=== PATIENT | male | born 1980 | race African-American/Black ===

== ENCOUNTER 2019-04-09 05:55 | Emergency (ER) | payer OTHER ==
[~2019-04-09] VITALS: Ht 154.9 cm; Wt 99.8 kg
[2019-04-09 05:55] VITALS: BP 194/108
--- NOTE | 2019-04-09 06:00 | NUR ---
38 Y/O M BIBA FROM HOME WITH C/O NECK PAIN X2 WEEKS, WORSENING LAST NIGHT. 9/10 PAIN, SHARP AND PINPOINT. PAIN RADIATES BILATERAL SHOULDERS. C/O DIARRHEA AND CHILLS. SINCE LAST NIGHT. AV FISTULA TO L ARM, +BRUIT/THRILL. R CHEST PORT USED FOR DIALYSIS, MWF. PT R NECK TENDER TO TOUCH. DENIES N/V. ERMD NOTIFIED OF PT CONDITION. BEDRAILSX2 UP. BED IN LOCKED POSITION. WILL CONTINUE TO MONITOR.
[2019-04-09] MEDS ORDERED: ASPIRIN 325 MG TAB PO ONE (06:05)
[2019-04-09] MEDS ORDERED: MORPHINE SULFATE 4 MG/ML SYR IVP ONE (06:05)
[2019-04-09] MEDS ORDERED: METOPROLOL 5 MG/5 ML VIAL IVP ONE (06:05)
--- NOTE | 2019-04-09 06:10 | NUR ---
EKG PERFORMED AT BEDSIDE
--- NOTE | 2019-04-09 06:30 | NUR ---
UNABLE TO OBTAIN BLOOD FROM IV LINE. LAB ATTEMPTED AND UNSUCCESSFUL. DR. AGGARWAL MADE AWARE AND GAVE PERMISSION TO SEND PT TO CT WITHOUT LAB RESULTS.
--- NOTE | 2019-04-09 06:44 | NUR ---
PT AMBULATED TO WITH EMT ASSISTANCE.
--- NOTE | 2019-04-09 06:57 | NUR ---
CT SETTING UP FOR PROCEDURE. Addendum: 04/09/19 at 0658 by MED RAD SETTING UP FOR CT PROCEDURE.
[2019-04-09] MEDS ORDERED: GLIP5TAB13 PO (07:04)
[2019-04-09] MEDS ORDERED: FURO-570 PO (07:04)
[2019-04-09] MEDS ORDERED: CARV12.52 PO (07:04)
[2019-04-09] MEDS ORDERED: LOSA50TA66 PO (07:04)
[2019-04-09] MEDS ORDERED: ATOR20TA PO (07:04)
[2019-04-09] MEDS ORDERED: CLON0.1T42 PO (07:04)
[2019-04-09] MEDS ORDERED: HYDR100T79 PO (07:04)
[2019-04-09] MEDS ORDERED: AMLO10TA PO (07:04)
[2019-04-09] MEDS ORDERED: ASPI81EC20 PO (07:04)
--- NOTE | 2019-04-09 07:06 | NUR ---
PT TAKEN TO CT VIA [facility]
[2019-04-09] MEDS ORDERED: ERGO500028 PO (07:07)
[2019-04-09] MEDS ORDERED: CLON0.1T46 TD (07:07)
--- NOTE | 2019-04-09 07:14 | NUR ---
REPORT GIVEN TO JEROD DAVIS. TRANSFER OF CARE AT THIS TIME.
--- NOTE | 2019-04-09 07:19 | NUR ---
Report received from JEROD Tamayo.
--- NOTE | 2019-04-09 07:47 | NUR ---
Pt. returned from CT.
[2019-04-09 08:58] VITALS: BP 157/77
--- NOTE | 2019-04-09 09:00 | NUR ---
Patient discharged with v/s stable. Written and verbal after care instructions given and explained. Patient alert, oriented and verbalized understanding of instructions. Ambulatory with steady gait. All questions addressed prior to discharge. ID band removed. Patient advised to follow up with PMD. Rx of Motrin 800mg and [place] 5mg-325mg given. Patient educated on indication of medication including possible reaction and side effects. Opportunity to ask questions provided and answered.
== END 2019-04-09 08:58 | disposition home or self-care (01) ==
LOC: MED 05:55
DX: M54.2 Cervicalgia (principal); I11.0 Hypertensive heart disease with heart failure; I50.9 Heart failure, unspecified; E11.9 Type 2 diabetes mellitus without complications; F12.10 Cannabis abuse, uncomplicated; Z88.1 Allergy status to other antibiotic agents; Z88.8 Allergy status to other drugs, medicaments and biological substances; Z79.82 Long term (current) use of aspirin; Z79.899 Other long term (current) drug therapy
CPT/HCPCS: 71045; 71275; 93005; 96374; 96375; 99284; J2270; J3490; Q0092; Q9967